=== PATIENT | male | born 1970 | race Caucasian/White ===

== ENCOUNTER 2021-02-05 15:04 | Emergency (ER) | payer MEDICARE ==
[~2021-02-05 15:04] MED LIST: CIPRO500 MG PO; DELSYM30 MG/5 ML PO; EXPECTORANT200 MG PO; FLAGYL500 MG PO; FLONASE 0.05% N16 GM; IBUPROFEN600 MG PO; IMITREX50 MG PO; NORCO 5-325 TA1 EACH PO; PERCOCET 5/325 T1 EA PO; PHENERGAN 12.12.5 M1 PO; PHENERGAN 25 MG25 M1 PO; PREDNISONE 20 M20 MG PO; VANCOMYCIN HCL250 MG PO
[2021-02-05] MEDS ORDERED: ERYTHROMYCIN O3.5 GM OU (15:46)
== END 2021-02-05 15:43 | disposition home or self-care (01) ==
LOC: ER1 15:04
DX: S05.02XA Injury of conjunctiva and corneal abrasion without foreign body, left eye, initial encounter (principal); F17.210 Nicotine dependence, cigarettes, uncomplicated; Z79.899 Other long term (current) drug therapy; X58.XXXA Exposure to other specified factors, initial encounter
CPT/HCPCS: 99283

== ENCOUNTER 2021-02-11 00:11 | Emergency (ER) | payer OTHER ==
[~2021-02-11 00:11] MED LIST changes: +ERYTHROMYCIN O3.5 GM OU
== END 2021-02-11 03:00 | disposition home or self-care (01) ==
LOC: ER1 00:11
DX: R51.9 Headache, unspecified (principal); F17.210 Nicotine dependence, cigarettes, uncomplicated
CPT/HCPCS: 96374; 96375; 99283; J0780; J1200; J1885

== ENCOUNTER 2021-02-12 23:14 | Emergency (ER) | payer OTHER ==
[2021-02-12 23:39] LABS: RED BLOOD COUNT 4.82 M/UL (4.20-5.50); WHITE BLOOD COUNT 8.4 K/UL (4.5-11.0)
[2021-02-13 00:02] LABS: BUN/CREATININE RATIO 6 (0-10)
== END 2021-02-13 00:35 | disposition home or self-care (01) ==
LOC: ER1 23:14
PROVIDERS: Student in an Organized Health Care Education/Training Program
DX: R52 Pain, unspecified (principal); F17.210 Nicotine dependence, cigarettes, uncomplicated; Z90.89 Acquired absence of other organs; Z88.6 Allergy status to analgesic agent; Z88.8 Allergy status to other drugs, medicaments and biological substances
CPT/HCPCS: 80053; 85025; 99283

== ENCOUNTER 2021-03-22 20:06 | Emergency (ER) | payer OTHER ==
[2021-03-22 20:34] LABS: HEMOGLOBIN 17.5 gm/dl (14.0-17.5); RED BLOOD COUNT 5.6 M/UL (4.20-5.50); WHITE BLOOD COUNT 10.9 K/UL (4.5-11.0)
[2021-03-22 20:53] LABS: BUN/CREATININE RATIO 8 (0-10)
[2021-03-22] MEDS ORDERED: FLAGYL 250 MG250 MG PO (22:20)
[2021-03-22] MEDS ORDERED: CIPRO500 MG PO (22:20)
[2021-03-22] MEDS ORDERED: PHENERGAN 12.12.5 M1 PO (22:34)
== END 2021-03-22 22:34 | disposition home or self-care (01) ==
LOC: ER1 20:06
PROVIDERS: Emergency Medicine
DX: K52.9 Noninfective gastroenteritis and colitis, unspecified (principal); Z20.822 Contact with and (suspected) exposure to COVID-19; F17.210 Nicotine dependence, cigarettes, uncomplicated
CPT/HCPCS: 71045; 80053; 82550; 82553; 83690; 83874; 84484; 85025; 93005; 96374; 99284; J2550; Q9967; U0002

== ENCOUNTER 2021-05-19 23:53 | Emergency (ER) | payer OTHER ==
[~2021-05-19 23:53] MED LIST changes: +FLAGYL 250 MG250 MG PO
[2021-05-20 02:01] LABS: HEMOGLOBIN 14.8 gm/dl (14.0-17.5); RED BLOOD COUNT 4.9 M/UL (4.20-5.50); WHITE BLOOD COUNT 4.6 K/UL (4.5-11.0)
[2021-05-20 02:24] LABS: BUN/CREATININE RATIO 5 (0-10)
[2021-05-20] MEDS ORDERED: METRONIDAZOLE500 MG PO (06:08)
[2021-05-20] MEDS ORDERED: CIPRO500 MG PO (06:08)
[2021-05-20] MEDS ORDERED: PHENERGAN 25 MG25 M1 PO (06:26)
== END 2021-05-20 06:30 | disposition home or self-care (01) ==
LOC: ER1 23:53
PROVIDERS: Emergency Medicine
DX: K52.9 Noninfective gastroenteritis and colitis, unspecified (principal); E87.6 Hypokalemia; F17.200 Nicotine dependence, unspecified, uncomplicated
CPT/HCPCS: 74018; 80053; 83605; 83735; 85025; 96374; 96375; 99284; J1170; J2550; J3480; Q9967

== ENCOUNTER 2021-05-22 07:26 | Emergency (ER) | payer OTHER ==
[~2021-05-22 07:26] MED LIST changes: +METRONIDAZOLE500 MG PO
[2021-05-22 08:53] LABS: HEMOGLOBIN 15.8 gm/dl (14.0-17.5); RED BLOOD COUNT 5.16 M/UL (4.20-5.50); WHITE BLOOD COUNT 4.3 K/UL (4.5-11.0)
[2021-05-22] MEDS ORDERED: BENTYL 20MG TAB20 MG PO (13:31)
[2021-05-22] MEDS ORDERED: PHENERGAN 25 MG25 M1 PO (13:31)
== END 2021-05-22 13:20 | disposition home or self-care (01) ==
LOC: ER1 07:26
PROVIDERS: Emergency Medicine
DX: K52.9 Noninfective gastroenteritis and colitis, unspecified (principal); F17.210 Nicotine dependence, cigarettes, uncomplicated; Z88.6 Allergy status to analgesic agent
CPT/HCPCS: 80053; 81001; 83605; 85025; 99284; J1170; J7030

== ENCOUNTER 2021-10-04 21:24 | Emergency (ER) | payer OTHER ==
[~2021-10-04 21:24] MED LIST changes: +BENTYL 20MG TAB20 MG PO
== END 2021-10-04 22:20 | disposition home or self-care (01) ==
LOC: ER1 21:24
DX: H10.13 Acute atopic conjunctivitis, bilateral (principal); R06.00 Dyspnea, unspecified; F17.210 Nicotine dependence, cigarettes, uncomplicated
CPT/HCPCS: 99284

== ENCOUNTER 2021-10-16 22:32 | Emergency (ER) | payer OTHER | END 2021-10-16 23:25 | disposition left against medical advice (07) | LOC: ER1 22:32 | DX: Z53.21 Procedure and treatment not carried out due to patient leaving prior to being seen by health care provider (principal) ==

== ENCOUNTER 2021-10-18 01:14 | Emergency (ER) | payer OTHER | END 2021-10-18 04:22 | disposition home or self-care (01) | LOC: ER1 01:14 | DX: H92.02 Otalgia, left ear (principal); F17.210 Nicotine dependence, cigarettes, uncomplicated; Z88.0 Allergy status to penicillin | CPT/HCPCS: 99282 ==